=== PATIENT | male | born 1985 | race Caucasian/White ===

== ENCOUNTER 2023-02-17 12:48 | Emergency (ER) | payer OTHER ==
[~2023-02-17] VITALS: Ht 172.7 cm; Wt 66.0 kg
[2023-02-17 12:50] VITALS: O2SAT 98
[2023-02-17] MEDS ORDERED: KETOROLAC 30MG/ML VIAL IM ONE (13:30)
[2023-02-17] MEDS ORDERED: DOXYCYCLINE HYCLATE 100MG CAPSULE PO ONE (13:30)
[2023-02-17] MEDS ORDERED: IBUP-2029 MT (14:27)
[2023-02-17] MEDS ORDERED: DOXY-456 MT (14:27)
[2023-02-17 15:16] VITALS: BP 124/79; PULSE 85; RESP 18; TEMP 98.1
== END 2023-02-17 15:18 | disposition home or self-care (01) ==
LOC: ER 12:48
DX: M25.561 Pain in right knee (principal)
CPT/HCPCS: 99283; 73562; 96372; J1885